=== PATIENT | female | born 1980 | race Caucasian/White ===

== ENCOUNTER 2017-07-22 08:18 | Emergency (ER) | payer OTHER ==
[2017-07-22 08:34] VITALS: BP 113/69
--- NOTE | 2017-07-22 08:52 | UC ---
Throat Pain/Nasal Ramos HPI - HPI Summary HPI Summary: Pt presents to with report of sore throat and right ear pain starting this morning. No fever, chills. + painful swallowing. No analgesia taken. No rash. no sob, cp, abd pain. No drooling. No known strep exposure. Pt's medications reviewed this visit. - History of Current Complaint Stated Complaint: SORE THROAT Hx Obtained From: Patient Hx Last Menstrual Period: murina ?: No Onset/Duration: Sudden Onset Severity: Mild Associated Signs & Symptoms: Positive: Dysphagia. Negative: Drooling, Hoarseness, Sinus Discomfort, Nasal Discharge, Fever - Allergies/Home Medications Allergies/Adverse Reactions: Allergies Allergy/AdvReac Type Severity Reaction Status Date / Time No Known Allergies Allergy Verified 07/17/15 17:59 PMH/Surg Hx/FS Hx/Imm Hx Previously Healthy: Yes GI/ History: Other Other GI/ History: Chron's - Surgical History Surgical History: Yes Surgery Procedure, Year, and Place: [place] Teeth extraction - Family History Known Family History: Positive: Hypertension - Social History Occupation: Employed Full-time Lives: With Family Alcohol Use: Occasionally Alcohol Amount: 1 drink Substance Use Type: None Smoking Status (MU): Former Smoker - Immunization History Most Recent Influenza Vaccination: 2014 Most Recent Tetanus Shot: UNKNOWN Review of Systems Constitutional: Negative Skin: Negative ENT: Sore Throat, Ear Ache Respiratory: Negative Cardiovascular: Negative All Other Systems Reviewed And Are Negative: Yes Physical Exam Triage Information Reviewed: Yes Appearance: Well-Appearing, No Pain Distress Vital Signs: Initial Vital Signs Temp 98.1 F 07/22/17 08:27 Pulse 84 07/22/17 08:27 Resp 16 07/22/17 08:27 BP 113/69 07/22/17 08:27 Pulse Ox 100 07/22/17 08:27 Eye Exam: Normal Eyes: Positive: Conjunctiva Clear ENT: Positive: Pharynx normal, Pharyngeal erythema, Other - scant fluid right ear no erythema, no retraction left ear no fluid turbinates inflammed + PND uvula midline + erythema Exudate right tonsil mild submandibular LA. Negative : Nasal congestion, TMs normal Dental Exam: Normal Neck: Positive: No Lymphadenopathy Respiratory Exam: Normal Respiratory: Positive: Chest non-tender, Lungs clear, Normal breath sounds, No respiratory distress, No accessory muscle use Cardiovascular Exam: Normal Cardiovascular: Positive: RRR, No Murmur, Pulses Normal Bowel Sounds: Positive: Present Musculoskeletal Exam: Normal Neurological Exam: Normal Neurological: Positive: Alert Psychological Exam: Normal Skin Exam: Normal Throat Pain/Nasal Course/Dx - Course Course Of Treatment: Pt presents with sore throat and right ear pain this am. Pt with exudative pharyngitis right tonsil. + strep. Rx Amox. Pt declined flonase. Pt declined lidocaine. hydrate. secretion precaution. motrin/apap - Differential Dx/Diagnosis Provider Diagnoses: strep pharyngitis Discharge - Discharge Plan Condition: Stable Disposition: HOME Prescriptions: Amoxicillin PO (*) [Amoxicillin 500 MG CAP*] 500 mg PO Q12H #20 cap Fluconazole [Diflucan 150 MG (NF)] 150 mg PO ONCE #1 tab Patient Education Materials: Strep Throat (ED) Referrals: Sisi Mendieta MD [Primary Care Provider] - Additional Instructions: - Okay to alternate ibuprofen (Advil, Motrin) and Tylenol every 3 hours for pain. Take with food. Do NOT take for more than 4-5 days - Okay to gargle and spit every 4 hours as needed for pain - Stay well hydrated - frequent sips of cold fluids will be soothing to your throat (popsicles, jello, ice cream, ice water). Avoid excess caffeine until your symptoms have resolved. --Throat infections are spread by oral secretions - do not share eating or drinking utensils until you symptoms are resolved. Clean items that may get your secretions such as cell phones, ipads, computer mouse, television remotes. Once you have been on antibiotics for 2 days, change your tooth brush and your toothbrush - You have been given a prescription for diflucan - a medication you can use if you develop a yeast infection from taking antibiotics - Contact your doctor to arrange a follow-up appointment as needed
== END 2017-07-22 09:09 | disposition home or self-care (01) ==
LOC: UCEAST 08:18
DX: J02.0 Streptococcal pharyngitis (principal); K50.90 Crohn's disease, unspecified, without complications; Z87.891 Personal history of nicotine dependence
CPT/HCPCS: 87651; 99211; G0463